=== PATIENT | male | born 1950 | race Caucasian/White ===

== ENCOUNTER 2024-02-07 08:42 | Day surgery (SDC) | payer MEDICARE, MEDICAID ==
[2024-02-07] VITALS (12 sets, daily range): BP systolic 120–161; BP diastolic 51–77; PULSE 57–61; RESP 12–25; O2SAT 98–100
[~2024-02-07 08:42] MED LIST: ACET325T55 PO; ALB0.5UD NEB; AMIO200T72 PO; ATOR-429 PO; ATR0.5NEB NEB; DILT-117 PO; GUAI100L97 PO; HYDR-3972 PO; IRON150C5 PO; LIDO700A32 TOP; LORA-268 PO; META-117 PO; METO-384 PO; MOME13HF12 INH; NYST50002 PO; PANT-47 PO; POLY17PO59 PO; ROPI4TAB22 PO; ROPI4TAB41 PO; ZOLP5TAB8 PO
[2024-02-07] MEDS ORDERED: fentaNYL/PF 50MCG/1 ML 2ML syringe ONE (10:28)
[2024-02-07] MEDS ORDERED: MIDAZolam 1 MG/ML 5ML VIAL ONE (10:29)
[2024-02-07] MEDS ORDERED: diphenhydrAMINE 50 mg/ml inj ONE (10:29)
[2024-02-07] MEDS ORDERED: LIDOcaine 2% Viscous 15ml cup ONE (10:29)
== END 2024-02-07 12:30 ==
LOC: GI LAB 08:42
PROVIDERS: ATTEND Internal Medicine Gastroenterology
DX: D50.0 Iron deficiency anemia secondary to blood loss (chronic) (principal); K92.1 Melena; K29.50 Unspecified chronic gastritis without bleeding; K31.89 Other diseases of stomach and duodenum; I25.10 Atherosclerotic heart disease of native coronary artery without angina pectoris; J44.9 Chronic obstructive pulmonary disease, unspecified
CPT/HCPCS: 43239; 99153; A4620; G0500; J2250; J3010; J7030; Z7512; 99152; J1200